=== PATIENT | female | born 1960 | race American Indian/Alaskan Native ===

== ENCOUNTER 2019-07-12 06:29 | Day surgery (SDC) | payer MEDICARE ==
[2019-07-12] MEDS ORDERED: ASPIRIN EC 325 MG TAB PO ONE (07:02)
[2019-07-12] MEDS: SODIUM CHLORIDE 0.9% 1000 ML 1,000 ML IV SCH ×2 (07:25→09:30)
[2019-07-12] MEDS ORDERED: HEPARIN/NS 5000 UNIT/500ML 1,000 ML IR ONE (08:34)
[2019-07-12] MEDS: MIDAZOLAM 2 MG/2 ML INJ ONE ×2 (09:28→09:36)
[2019-07-12] MEDS: fentaNYL 100 MCG/2 ML INJ ONE ×2 (09:28→09:36)
[2019-07-12] MEDS: NITROGLYCERIN SYRINGE 3 ML ONE ×2 (09:30→09:39)
[2019-07-12] MEDS: LIDOCAINE (2%) 20 MG/1 ML VIAL 20 ML MDV INFILTRATI ONE ×2 (09:30→09:38)
[2019-07-12] MEDS: HEPARIN 10,000 UNITS/10 ML VIAL ONE ×2 (09:30→09:39)
[2019-07-12] MEDS: VERAPAMIL 5 MG/2 ML INJ ONE ×2 (09:31→09:39)
--- NOTE | 2019-07-12 10:19 | Cardiac Catherization Report ---
CARDIAC CATHETERIZATION REFERRING PHYSICIAN: Dr. Dolores Lion INDICATION FOR PROCEDURE: The patient is a pleasant 59-year-old -[place] female with a history of hypertension, chronic kidney disease, diabetes, who has a dilated cardiomyopathy, presents here for cardiac catheterization. Risks, benefits, potential alternatives explained at length prior to obtaining informed consent. Her anticoagulation has been held for 2 days. Creatinine is normal. Risks, benefits, alternatives discussed at length prior to obtaining informed consent. PROCEDURE IN DETAIL: The patient was brought to the catheterization lab in a postabsorptive state, prepped and draped in sterile fashion. Erick's test in right hand was normal. A 2 mL of 2% lidocaine used to anesthetize the right wrist. A standard 6-Frisian hydrophilic sheath used to cannulate the right radial artery via modified Seldinger technique. All exchanges performed to exchange a J-tip guidewire. JL3.5 catheter was used to engage the left main. No dampening or ventricularization. Cineangiography performed in all projections. JR4 catheter was used to cross the aortic valve under fluoroscopic guidance. Left ventriculography performed in 30 SINGH and 30 IBAN projections via hand injections, catheter flushed. Manual pullback performed with continuous pressure monitoring. Catheter used to engage the right coronary. No dampening or ventricularization. Cineangiography performed in multiple projections. Next, catheter removed from the body of wire, sheath removed. Manual pressure used to achieve hemostasis. I directly supervised the administration of moderate sedation from 9:30 a.m. to 9:55 a.m. with fentanyl and Versed. There were no immediate complications. DATA: Aortic pressure is 150/90, LV pressure is 150, LVP of 25 mmHg. Left ventriculography reveals moderate global left ventricular hypokinesis, estimated ejection fraction of 35-40%. No evidence of aortic stenosis. No significant mitral regurgitation either. CORONARY ANATOMY: Right coronary is a moderate sized vessel, courses AV groove, distally bifurcates in the posterior descending and posterolateral branches. No discrete stenosis identified. Left main is without significant disease. LAD is a moderate sized vessel, courses anterior intergroove, wraps around the apex, tortuous, no significant disease in the LAD or diagonal system. Left circumflex, moderate sized vessel, courses AV groove. No significant disease noted. CONCLUSIONS: 1. No angiographic evidence of significant epicardial coronary disease in this right dominant system. 2. Moderate global left ventricular hypokinesis, estimated ejection fraction of 35-40%. 3. No evidence of aortic stenosis. 4. Mildly elevated LVEDP. These findings are consistent with a moderate dilated cardiomyopathy approximately 35-40%, which is well compensated, questionably etiology. Certainly hypertension may be playing a role. Restart anticoagulation, standard radial care. Results of procedure explained to the patient and family, also discussed with Dr. Dolores Lion. Follow up with Dr. Dolores Lion in the office. JOB# [id number] SBM/NTS
[2019-07-12 12:31] VITALS: BP 148/92
== END 2019-07-12 13:12 | disposition home or self-care (01) ==
LOC: CATHLABREC 06:29
PROVIDERS: ATTEND Internal Medicine
DX: I42.0 Dilated cardiomyopathy (principal); I13.0 Hypertensive heart and chronic kidney disease with heart failure and stage 1 through stage 4 chronic kidney disease, or unspecified chronic kidney disease; I50.9 Heart failure, unspecified; N18.3 Chronic kidney disease, stage 3 (moderate); E11.22 Type 2 diabetes mellitus with diabetic chronic kidney disease; I48.91 Unspecified atrial fibrillation; G47.30 Sleep apnea, unspecified; M19.90 Unspecified osteoarthritis, unspecified site; E03.9 Hypothyroidism, unspecified; D64.9 Anemia, unspecified; Z98.890 Other specified postprocedural states; Z90.710 Acquired absence of both cervix and uterus; Z79.899 Other long term (current) drug therapy; Z83.3 Family history of diabetes mellitus; Z82.49 Family history of ischemic heart disease and other diseases of the circulatory system
CPT/HCPCS: 82962; 93005; 93010; 93458; 99156; 99157; C1894; J1644; J2250; J3010; J7030; 96360; 96361; Q9967